=== PATIENT | female | born 1985 | race Caucasian/White ===

== ENCOUNTER 2018-03-30 13:42 | Emergency (ER) | payer OTHER ==
--- NOTE | 2018-03-30 15:07 | ER Document Report ---
ED GI/ - General Chief Complaint: Back Pain Stated Complaint: BACK PAIN Time Seen by Provider: 03/30/18 14:44 Mode of Arrival: Ambulatory Information source: Patient Notes: 32-year-old female presents to ED for complaint of left back and flank pain. She is 25 weeks . She states the pain goes around to her pelvic area and it also goes down her left leg. She states is 4 para 3. She states she has never had pain like this with any of her other pregnancies. She states is been going on for 3 or 4 days. She states she just moved to the area and she has a OB appointment on . TRAVEL OUTSIDE OF THE [place] IN LAST 30 DAYS: No - HPI Patient complains to provider of: Abdominal pain, Flank pain, Other - Low back pain with pain radiating to the left pelvis and leg Onset: Other - 84 days Timing/Duration: Gradual Quality of pain: Sharp Severity at maximum: Moderate Severity in ED: Moderate Pain Level: 4 Context: Location: Left flank, Low back Vaginal bleeding (Compared to normal period): None Menstrual period history: : 4 Para: 3 OB ultrasound done: Yes Associated symptoms: Other - 25-week with left flank and low back pain radiating down the leg Exacerbated by: Movement Relieved by: Denies Similar symptoms previously: No Recently seen / treated by doctor: No - Related Data Allergies/Adverse Reactions: No Known Allergies Allergy (Unverified 03/30/18 13:43) Past Medical History - General Information source: Patient - Social History Smoking Status: Never Smoker Cigarette use (# per day): No Chew tobacco use (# tins/day): No Smoking Education Provided: No Frequency of alcohol use: None Drug Abuse: None Lives with: Family Family History: Reviewed & Not Pertinent Patient has suicidal ideation: No Patient has homicidal ideation: No - Past Medical History Cardiac Medical History: Reports: None Pulmonary Medical History: Reports: None EENT Medical History: Reports: None Neurological Medical History: Reports: None Endocrine Medical History: Reports: None Renal/ Medical History: Reports: None Malignancy Medical History: Reports: None GI Medical History: Reports: None Musculoskeletal Medical History: Reports None Skin Medical History: Reports None Psychiatric Medical History: Reports: None Traumatic Medical History: Reports: None Infectious Medical History: Reports: None Past Surgical History: Reports: Hx Gynecologic Surgery - leep/cone bx Review of Systems - Review of Systems Constitutional: No symptoms reported EENT: No symptoms reported Cardiovascular: No symptoms reported Respiratory: No symptoms reported Gastrointestinal: No symptoms reported Genitourinary: Flank pain - left Female Genitourinary: Musculoskeletal: Back pain Skin: No symptoms reported Hematologic/Lymphatic: No symptoms reported Neurological/Psychological: No symptoms reported -: Yes All other systems reviewed and negative Physical Exam - Vital signs Vitals: Temp Pulse Resp BP Pulse Ox 98.7 F 76 16 114/62 100 03/30/18 13:59 03/30/18 13:59 03/30/18 13:59 03/30/18 13:59 03/30/18 13:59 Interpretation: Normal - General General appearance: Appears well, Alert - HEENT Head: Normocephalic, Atraumatic Eyes: Normal Pupils: PERRL - Respiratory Respiratory status: No respiratory distress Chest status: Nontender Breath sounds: Normal Chest palpation: Normal - Cardiovascular Rhythm: Regular Heart sounds: Normal auscultation Murmur: No - Abdominal Inspection: Gravid female - 25 weeks according to patient Distension: No distension Bowel sounds: Normal Tenderness: Tender - flank left Organomegaly: No organomegaly Notes: Willing patient to ultrasound for a renal ultrasound she stated she started having pain down the center of her abdomen. A OB greater than 14-week ultrasound was added and ultrasound will do it while she has an ultrasound. She states she does not feel like she has any vaginal bleeding - Back Back: Normal, Nontender - Extremities General upper extremity: Normal inspection, Nontender, Normal color, Normal ROM , Normal temperature General lower extremity: Normal inspection, Nontender, Normal color, Normal ROM , Normal temperature, Normal weight bearing. No: Mayela's sign - Neurological Neuro grossly intact: Yes Cognition: Normal Orientation: AAOx4 [place] Coma Scale Eye Opening: Spontaneous [place] Coma Scale Verbal: Oriented [place] Coma Scale Motor: Obeys Commands Bryanna Coma Scale Total: 15 Speech: Normal Motor strength normal: LUE, RUE, LLE, RLE Sensory: Normal - Psychological Associated symptoms: Normal affect, Normal mood - Skin Skin Temperature: Warm Skin Moisture: Dry Skin Color: Normal Course - Re-evaluation Re-evalutation: 03/30/18 22:[address] Lester who came and examined the patient. She recommended given 5 g of pain IM and follow-up with her CLIENT MANAGER. Patient was treated with 5 mg of morphine IM and instructed to follow-up with [facility]. Ultrasound of kidney and CLIENT MANAGER were both negative as well as her urine. Patient was given a copy of these results to follow-up. Patient was encouraged to increase her ambulation and back exercises to reduce the pain in her flank and low back. - Vital Signs Vital signs: Temp Pulse Resp BP Pulse Ox 97.2 F 72 18 109/58 L 99 03/30/18 17:49 03/30/18 17:49 03/30/18 17:49 03/30/18 17:49 03/30/18 17:49 - Diagnostic Test Radiology reviewed: Image reviewed, Reports reviewed Discharge - Discharge Clinical Impression: Flank pain, Low back pain during in second trimester Sciatica Qualifiers: Laterality: left Qualified Code(s): M54.32 - Sciatica, left side Condition: Stable Disposition: HOME, SELF-CARE Additional Instructions: Flank Pain We weren't able to prove an exact cause for your flank pain. Pain in the flank can be caused by a muscle strain or spasm. Sometimes a kidney stone causes pain, but can't be found on our tests. Infection in the kidney should be evident on a urine test. Early shingles can occasionally cause flank pain, without the rash that proves the diagnosis. On rare occasions, disease of the pancreas, aorta, spleen, or colon can create pain in the flank. At this time, there's no evidence of a dangerous condition, and it seems safe for you to be at home. If the pain goes away and does not come back, no further testing will be needed. If pain persists, or becomes more severe, we may need to repeat some tests or order additional new testing. Blood in the urine, urgency to urinate frequently, and pain that radiates to the groin can indicate a kidney stone. Fever may mean that the pain is due to infection, either of the kidney or the colon (diverticulitis). If your pain is early shingles, you should develop an eruption of blisters in the painful area within a few days. Call the doctor or return if you have pain that is spreading or becoming more severe, pain that does not resolve with time, fever, or any other new symptoms. LOW BACK PAIN: Three out of every four people will have an episode of disabling back pain during their lifetime. Most commonly the pain is due to straining of the muscles and ligaments in the low back. Usual treatment includes: (1) Rest on a firm surface. Avoid lying on your stomach. (2) Ice pack the painful area. After a few days, gentle heat may be used intermittently to relax the area, or ice packs can be continued. (3) Medication may be needed -- muscle relaxers and antiinflammatory medicines are commonly used. (4) As the back improves, exercises are prescribed to strengthen the back and abdominal muscles. Your doctor will advise you on the proper care for your back at each stage in your recovery. You may be better in a few days -- or healing may take several weeks. If new symptoms of a "herniated disc" (radiation of pain, numbness, or tingling down the back of the leg or weakness in the leg) occur, you should be re-examined. Further testing may be necessary. ICE PACKS: Apply ice packs frequently against the painful area. Many different schedules are recommended, such as "20 minutes on, 20 minutes off" or "one hour ice, two hours rest." If you need to work, you may need to go longer between ice treatments. You should plan to have the area ice packed AT LEAST one fourth of the time. The ice should be applied over the wrap, tape, or splint, or over a layer of cloth -- not directly against the skin. Some ice bags have a built-in cloth and can be put directly on the skin. WARM PACKS: After approximately two days, apply gentle heat (such as a heating pad or hot water bottle) for about 20 to 30 minutes about every two hours -- at least four times daily. Warmth and elevation will help you make a more rapid recovery , and will ease the pain considerably. Do not use HOT heat, and never apply heat for longer than 30 minutes. The continuous heat can invisibly damage skin and muscles -- even when no burn is seen on the surface. Damaged muscles can make you MORE sore. Acetaminophen Acetaminophen may be taken for pain relief or fever control. It's much safer than aspirin, offering a wider range of "safe" dosages. It is safe during . Some brand names are Tylenol, Panadol, Datril, Anacin 3, Tempra, and Liquiprin. Acetaminophen can be repeated every four hours. The following are maximum recommended dosages: WEIGHT Dose Drops Elixir Chewable( 80mg) (LBS.) drprs=droppers tsp=teaspoon 6 40 mg .4 ml (1/2) 6-11 80 mg .8 ml (full) 1/2 tsp 1 tab 12-16 120 mg 1 1/2 drprs 3/4 tsp 1 1/2 tabs 17-23 160 mg 2 drprs 1 tsp 2 tabs 24-30 240 mg 3 drprs 1 1/2 tsp 3 tabs 30-35 320 mg 2 tsp 4 tabs 36-41 360 mg 2 1/4 tsp 4 1 /2 tabs 42-47 400 mg 2 1/2 tsp 5 tabs 48-53 480 mg 3 tsp 6 tabs 54-59 520 mg 3 1/4 tsp 6 1 /2 tabs 60-64 560 mg 3 1/2 tsp 7 tabs 65-70 600 mg 3 3/4 tsp 7 1 /2 tabs 71-76 640 mg 4 tsp 8 tabs 77-82 720 mg 4 1/2 tsp 9 tabs 83-88 800 mg 5 tsp 10 tabs >89 pounds or adults 650 mg to 900 mg Acetaminophen can be repeated every four hours. Maximum daily dose not to exceed 4000 mg. These maximum recommended dosages are slightly higher than the dosages written on the product container, but these dosages are very safe and well below the toxic dosage for acetaminophen. Stretching Exercises for the Back The physician has recommended that you begin stretching exercises for your back. These are often used even while the back is painful. However, you should notify the physician if the activities seem to increase your pain. PELVIC TILT: Lie flat on your back with knees bent. Tighten your stomach and buttock muscles so it flattens your lower back against the floor. Hold 10 seconds. Repeat 10 times, twice daily. KNEE RAISE: Lying on the back with knees bent, raise one knee to your chest, then the other. Hold both knees against the chest 10 seconds, then lower one knee at a time. Repeat 10 times, twice daily. PARTIAL TRUNK RAISE: Lie face down, arms at your sides. Keeping your waist on the floor, use your arms raise your chest up. Support yourself on your elbows for 30 seconds. Repeat twice daily, increasing the time to two minutes as you recover. FOLLOW-UP CARE: If you have been referred to a physician for follow-up care, call the physician s office for an appointment as you were instructed or within the next two days. If you experience worsening or a significant change in your symptoms, notify the physician immediately or return to the Emergency Department at any time for re-evaluation. Referrals: [facility] [Provider Group] - Follow up as needed
[2018-03-30] MEDS ORDERED: ACETAMINOPHEN 325 MG TABLET PO ONE (16:08)
[2018-03-30] MEDS ORDERED: LIDOCAINE 5% (700 MG) TRANSDERMAL ADH..PATCH TP ONE (16:21)
[2018-03-30 16:36] LABS: APPEARANCE,URINE SLIGHTLY-CLOUDY; BILIRUBIN,URINE NEGATIVE (NEGATIVE); COLOR,URINE YELLOW; GLUCOSE, URINE NEGATIVE (NEGATIVE); KETONES,URINE NEGATIVE (NEGATIVE); LEUKOCYTE ESTERASE,URINE NEGATIVE (NEGATIVE); NITRITE,URINE NEGATIVE (NEGATIVE); PROTEIN,URINE NEGATIVE (NEGATIVE); URINE SPECIFIC GRAVITY 1.003; UROBILINOGEN,URINE NEGATIVE mg/dL (<2.0)
--- NOTE | 2018-03-30 16:59 | RADIOLOGY REPORT (SQ) ---
EXAM DESCRIPTION: U/S RETROPERITON (RENAL/AORTA) COMPLETED DATE/TIME: 03/30/2018 4:46 pm REASON FOR STUDY: left flank pain 25 weeks COMPARISON: None. TECHNIQUE: Dynamic and static grayscale images acquired of the kidneys and bladder and recorded on P ACS. Additional selected color Doppler and spectral images recorded. LIMITATIONS: None. FINDINGS: RIGHT KIDNEY: The right kidney measures 10.8 cm in length, normal size. Normal echogenici ty. No solid or suspicious masses. No hydronephrosis. No calcifications. LEFT KIDNEY: The left kidney measures 10.6 cm in length, normal size. Normal echogenicity. No solid or suspicious masses. No hydronephrosis. No calcifications. BLADDER: No masses. OTHER FINDINGS: No other significant finding. IMPRESSION: 1. NORMAL RENAL AND BLADDER ULTRASOUND. TECHNICAL DOCUMENTATION: JOB ID: [id number] [email or web address]- All Rights Reserved Reading location - IP/workstation name: [email or web address]
--- NOTE | 2018-03-30 17:06 | RADIOLOGY REPORT (SQ) ---
EXAM DESCRIPTION: U/S OB 14+ TRNABD 1GES W/O DOP COMPLETED DATE/TIME: 03/30/2018 4:54 pm REASON FOR STUDY: abdominal pain 25 weeks COMPARISON: None. TECHNIQUE: Static and Dynamic grayscale imaging performed of gravid uterus using transabdominal appr oach. Additional selected color Doppler and spectral images recorded. All stored on PACS. LIMITATIONS: None. FINDINGS: FETUSES SEEN:1 EGA: 23 weeks 5 days Calculated using BPD,FL,HC,AC documented on images. No discrepancy with clinica l dates. NAHOMY: 07/22/2018 EFW: 645 +/-95 grams PERCENTILE: 40 % LADONNA: 4.4 cm PLACENTA: Anterior PRESENTATION: Cephalic. ANATOMY: HEART RATE: 131 beats per minute. FOUR CHAMBER HEART: Visualized. THREE VESSEL CORD: Yes. CORD INSERTION: Visualized. KIDNEYS AND BLADDER: Visualized. Appear normal. STOMACH: Not visualized. SPINE: Not visualized. BRAIN AND LATERAL VENTRICLES: Lateral ventricles are not visualized. Cerebellum and cisterna magna are visualized. OTHER: No other significant finding. MATERNAL ADNEXA: Maternal ovaries not visualized. CERVICAL LENGTH: 7.4 cm. Closed. OTHER: No other significant finding. IMPRESSION: LIVING INTRAUTERINE . ESTIMATED GESTATIONAL AGE 23 weeks 5 days NO VISUALIZED ANOMALIES, see above. Trimester of : Second trimester - 13 weeks 1 day to 27 weeks 6 days. TECHNICAL DOCUMENTATION: JOB ID: [id number] [employer]- All Rights Reserved Reading location - IP/workstation name: [email or web address]
[2018-03-30] MEDS ORDERED: MORPHINE SULFATE 10 MG/ML INJ IM ONE (17:38)
[2018-03-30 17:50] VITALS: BP 109/58
== END 2018-03-30 17:51 | disposition home or self-care (01) ==
LOC: ER 13:42
DX: O99.89 Other specified diseases and conditions complicating pregnancy, childbirth and the puerperium (principal); M54.42 Lumbago with sciatica, left side; O26.892 Other specified pregnancy related conditions, second trimester; R10.9 Unspecified abdominal pain; R10.2 Pelvic and perineal pain; Z3A.25 25 weeks gestation of pregnancy
CPT/HCPCS: 99284; 96372; 81001; 76770; 76805; J2270

== ENCOUNTER 2018-05-31 16:42 | Outpatient (CLI) | payer MEDICAID, OTHER ==
--- NOTE | 2018-05-31 18:16 | Non Stress Test Report ---
Non Stress Test Datetime Report Generated by CPN: 05/31/2018 18:16 DEMOGRAPHIC EGA NST: 33.5 INDICATION Indication for Study: Ordered by Provider VITAL SIGNS Temperature - NST: 96.6 Pulse - NST: 86 RESP - NST: 18 NBPSYS NST: 109 NBPDIA NST: 58 URINE RESULTS Urine Ketones - NST: Positive MONITORING Monitor Explained: Monitor Explained; Test Explained; Patient Verbalized Understanding Time on Monitor: 05/31/2018 17:00 Time off Monitor: 05/31/2018 17:52 NST Duration: 52 NST INTERVENTIONS NST Interventions: PO Hydration; Reposition Patient Physician Notified NST: DR AMADEO REVIEWED STRIP BABY A: [id number] BABY A Movement : Present Contraction Frequency : NONE FHR Baseline : 125 Accelerations : 10X10 Decelerations : None Variability : Moderate 6-25bpm NST Review: Does Not Meet Criteria for Reactive NST NST Review and Verified By : EMA Renee NST Results: Non-Reactive NST REPORT Report Trigger: Send Report
== END 2018-05-31 18:07 | disposition home or self-care (01) ==
LOC: LC 16:42
PROVIDERS: ATTEND Obstetrics & Gynecology
PROC: 4A1HXCZ Monitoring of Products of Conception, Cardiac Rate, External Approach (ICD-10-PCS; principal; 2018-05-31)
DX: Z34.93 Encounter for supervision of normal pregnancy, unspecified, third trimester (principal)
CPT/HCPCS: 59025

== ENCOUNTER 2018-06-17 17:22 | Outpatient (CLI) | payer MEDICAID | END 2018-06-17 18:05 | disposition home or self-care (01) | LOC: LC 17:22 | PROVIDERS: ATTEND Obstetrics & Gynecology Gynecology | PROC: 4A1HXCZ Monitoring of Products of Conception, Cardiac Rate, External Approach (ICD-10-PCS; principal; 2018-06-17) | DX: O36.5930 Maternal care for other known or suspected poor fetal growth, third trimester, not applicable or unspecified (principal); O99.323 Drug use complicating pregnancy, third trimester; Z3A.36 36 weeks gestation of pregnancy | CPT/HCPCS: 59025 ==

== ENCOUNTER 2018-06-21 14:34 | Outpatient (CLI) | payer MEDICAID ==
[2018-06-21] MEDS ORDERED: DEXTROSE 5%-LACTATED RINGERS 1,000 ML IV PRN (15:27)
[2018-06-21 15:47] LABS: APPEARANCE,URINE CLEAR; BILIRUBIN,URINE NEGATIVE (NEGATIVE); COLOR,URINE YELLOW; GLUCOSE, URINE NEGATIVE (NEGATIVE); KETONES,URINE NEGATIVE (NEGATIVE); LEUKOCYTE ESTERASE,URINE NEGATIVE (NEGATIVE); NITRITE,URINE NEGATIVE (NEGATIVE); PROTEIN,URINE NEGATIVE (NEGATIVE)
[2018-06-21 16:05] LABS: URINE AMPHETAMINES SCREEN NEGATIVE; URINE BARBITURATES SCREEN NEGATIVE; URINE BENZODIAZEPINES SCREEN NEGATIVE; URINE COCAINE SCREEN NEGATIVE; URINE MARIJUANA (THC) SCREEN NEGATIVE; URINE PHENCYCLIDINE SCREEN NEGATIVE
[2018-06-21 16:11] LABS: URINE METHADONE SCREEN UNCONFIRMED POSITIVE
--- NOTE | 2018-06-21 17:08 | Non Stress Test Report ---
Non Stress Test Datetime Report Generated by CPN: 06/21/2018 17:08 DEMOGRAPHIC EGA NST: 36.5 EGA NST: 36.1 INDICATION Indication for Study: Ordered by Provider Indication for Study: Intrauterine Growth Restriction; Ordered by Provider; Other Indication for Study (NST) Other: methadone VITAL SIGNS Temperature - NST: 98.5 Pulse - NST: 92 RESP - NST: 18 NBPSYS NST: 109 NBPDIA NST: 56 MONITORING Monitor Explained: Monitor Explained; Test Explained; Patient Verbalized Understanding Monitor Explained: Monitor Explained; Test Explained; Patient Verbalized Understanding Time on Monitor: 06/21/2018 14:46 Time on Monitor: 06/17/2018 17:35 Time off Monitor: 06/21/2018 16:45 Time off Monitor: 06/17/2018 18:02 NST Duration: 119 NST Duration: 27 NST INTERVENTIONS NST Interventions: IV Fluids NST Interventions: PO Hydration; Reposition Patient Physician Notified NST: Dante Campos CNM/ Dr. North BABY A: [id number] BABY A Movement : Present Movement : Present Contraction Frequency : none Contraction Frequency : NONE FHR Baseline : 125 FHR Baseline : 130 Accelerations : 15X15 Accelerations : 15X15 Decelerations : None Decelerations : None Variability : Moderate 6-25bpm Variability : Moderate 6-25bpm NST Review: Meets Criteria for Reactive NST NST Review: Meets Criteria for Reactive NST NST Review and Verified By : EMA Renee NST Review and Verified By : RADHA GENTILE CNM NST Results: Reactive NST Results: Reactive NST REPORT Report Trigger: Send Report
== END 2018-06-21 16:53 | disposition home or self-care (01) ==
LOC: LC 14:34
PROVIDERS: ATTEND Obstetrics & Gynecology
PROC: 4A1HXCZ Monitoring of Products of Conception, Cardiac Rate, External Approach (ICD-10-PCS; principal; 2018-06-21)
DX: O36.5930 Maternal care for other known or suspected poor fetal growth, third trimester, not applicable or unspecified (principal); Z3A.36 36 weeks gestation of pregnancy
CPT/HCPCS: 59025; 80307; 81005

== ENCOUNTER 2018-07-07 06:24 | Inpatient (IN) | payer MEDICAID, OTHER ==
[2018-07-06 11:18] LABS: APPEARANCE,URINE SLIGHTLY-CLOUDY; BILIRUBIN,URINE NEGATIVE (NEGATIVE); COLOR,URINE YELLOW; GLUCOSE, URINE NEGATIVE (NEGATIVE); KETONES,URINE NEGATIVE (NEGATIVE); LEUKOCYTE ESTERASE,URINE SMALL (NEGATIVE); NITRITE,URINE NEGATIVE (NEGATIVE); PROTEIN,URINE NEGATIVE (NEGATIVE); UROBILINOGEN,URINE NEGATIVE mg/dL (<2.0)
[2018-07-06 11:33] LABS: ABSOLUTE BASOPHILS # (AUTO) 0.1 10^3/uL (0.0-0.2); ABSOLUTE EOSINOPHILS # (AUTO) 0.2 10^3/uL (0.0-0.6); ABSOLUTE LYMPHOCYTES (AUTO) 2.5 10^3/uL (0.5-4.7); ABSOLUTE MONOCYTES (AUTO) 0.5 10^3/uL (0.1-1.4); ABSOLUTE NEUT (AUTO) 11.4 10^3/uL (1.7-8.2); BASOPHILS % (AUTO) 0.4 % (0-2); HEMOGLOBIN 12.4 g/dL (12.0-15.5); LYMPHOCYTES % (AUTO) 16.9 % (13-45); MEAN CORPUSCULAR HEMOGLOBIN 30.6 pg (27.0-33.4); MEAN CORPUSCULAR HGB CONC 35.4 g/dL (32.0-36.0); MEAN CORPUSCULAR VOLUME 86 fl (80-97); MONOCYTES % (AUTO) 3.3 % (3-13); PLATELET COUNT 251 10^3/uL (150-450); RED BLOOD COUNT 4.06 10^6/uL (3.72-5.28); RED CELL DISTRIBUTION WIDTH 13.6 % (11.5-14.0); SEGMENTED NEUTROPHILS % (AUTO) 78.4 % (42-78); TOTAL CELLS COUNTED % (AUTO) 100 %; WHITE BLOOD COUNT 14.6 10^3/uL (4.0-10.5)
[2018-07-06 11:58] LABS: URINE AMPHETAMINES SCREEN NEGATIVE; URINE BARBITURATES SCREEN NEGATIVE; URINE BENZODIAZEPINES SCREEN NEGATIVE; URINE COCAINE SCREEN NEGATIVE; URINE MARIJUANA (THC) SCREEN NEGATIVE; URINE PHENCYCLIDINE SCREEN NEGATIVE
[2018-07-06 13:25] LABS: URINE METHADONE SCREEN UNCONFIRMED POSITIVE
[2018-07-07] MEDS ORDERED: CEFAZOLIN 2 GM/D5W RTU 2 GM/50 ML RTUPB IV PRN (06:35)
[2018-07-07] MEDS ORDERED: RINGERS SOLUTION,LACTATED 1,000 ML IV PRN (06:37)
[2018-07-07] MEDS ORDERED: RINGERS SOLUTION,LACTATED 1,000 ML IV ONE (06:45)
[2018-07-07] MEDS ORDERED: FENTANYL CITRATE INJ/PF 100 MCG/2 ML AMPUL ONE ×2 (07:00→10:42)
[2018-07-07] MEDS ORDERED: MIDAZOLAM 2 MG/2 ML INJ ONE (07:00)
[2018-07-07] MEDS ORDERED: OXYTOCIN 10 UNIT/ML VIAL ONE ×2 (07:01→10:42)
[2018-07-07] MEDS ORDERED: FENTANYL CITRATE INJ/PF 100 MCG/2 ML AMPUL IV PRN ×3 (08:59)
[2018-07-07] MEDS ORDERED: MEPERIDINE HCL/PF INJ 25 MG/1 ML DISP.SYRIN IV PRN (08:59)
[2018-07-07] MEDS ORDERED: DIPHENHYDRAMINE HCL 50 MG/ML VIAL IV PRN (08:59)
[2018-07-07] MEDS ORDERED: MORPHINE SULFATE 10 MG/ML INJ IV PRN (08:59)
[2018-07-07] MEDS ORDERED: PROMETHAZINE HCL INJ 25 MG/1 ML VIAL IV PRN ×3 (08:59→09:41)
[2018-07-07] MEDS ORDERED: ONDANSETRON HCL INJ/PF 4 MG/2 ML SDV IV PRN (09:29)
[2018-07-07] MEDS ORDERED: SIMETHICONE 80 MG TAB.CHEW PO PRN (09:41)
[2018-07-07] MEDS ORDERED: DIPH/PERTUSS(ACELL)/TETANUS VAC/PF 0.5 ML SYR (>=10YO) IM PRN (09:41)
[2018-07-07] MEDS ORDERED: ACETAMINOPHEN 1,000 MG/100 ML RTUPB IV PRN (09:41)
[2018-07-07] MEDS ORDERED: OXYTOCIN/NORMAL SALINE 20 UNIT/1,000 ML RTUINJ IV PRN (09:41)
[2018-07-07] MEDS ORDERED: MEASLES,MUMPS&RUBELLA VACC/PF 0.5 ML VIAL SUBCUT PRN (09:41)
[2018-07-07] MEDS ORDERED: ACETAMINOPHEN 325 MG TABLET PO PRN (09:41)
[2018-07-07] MEDS ORDERED: ACETAMINOPHEN 1,000 MG/100 ML RTUPB IV ONE (09:44)
--- NOTE | 2018-07-07 09:44 | PDOC DELIVERY SUMMARY ---
Delivery Summary - Maternal Hx : VIIII Hx # Term Pregnancies: 4 Hx Total # of Abortions (Sponateous & Elective): 3 NAHOMY: 07/14/18 Gestational Age: 39 Risk Factors: Previous Ruptured Membranes: AROM Time of Rupture: 09:14 Fluids: Clear - Delivery Presentation: Vertex Heart Rate Monitoring: Done Pre-Operatively Support Person Present: Yes Location: OR : Scheduled, Repeat Placenta: Within Normal Limits Nuchal Cord: No Delivery of Placenta Date: 07/07/18 Delivery of Placenta Time: 09:15 - Medications Type of Anesthesia:: Spinal - Assess and Care Baby 1 Female Delivery of Infant Date: 07/07/18 Delivery of Infant Time: 09:15 at 1 minute: 8 at 5 minutes: 8 Preprinted Number On Band: [id number] Infant Skin to Skin (Mins): 0 To Nursery At: 09:24 Mode of Transport: Bassinet - Delivery Personnel Nursery RN: MEHUL CARDOSO MD: SUSANA IBARRA
--- NOTE | 2018-07-07 09:53 | OPERATIVE REPORT E ---
Operative Report NAME: SILVANO KELLER : 1985 AGE: 32Y DATE OF SURGERY: 07/07/2018 ROOM: 224 PREOPERATIVE DIAGNOSIS: IUP at term with prior section. OPERATION: Repeat low-transverse with delivery of a viable female, 6 pounds 2 ounces, 18.5 inches, with Apgars of 8 and 9. SURGEON: Huy IBARRA M.D. ANESTHESIA: Spinal. ESTIMATED BLOOD LOSS: Less than 100 mL. TISSUE REMOVED: Placenta. PROCEDURE: The patient was placed in a supine position, rolled on her right side, prepped and draped in a sterile fashion. A Pfannenstiel incision was made through an existing Pfannenstiel eschar and the incision extended through the subcutaneous tissue and fascia with sharp dissection. The fascia was sharply divided. The rectus muscle was bluntly and sharply divided. The parietal peritoneum was entered with sharp dissection. The uterus was nicked in the midline and extended bilaterally with blunt dissection. The infant was then delivered through the uteroabdominal incision. The nose and mouth were suctioned with bulb syringe, the cord was clamped, and was passed from the table. The placenta was manually extracted. The uterus was closed in 2 layers, the first a running stitch of 0 Vicryl and the second a Lembert stitch imbricating the first layer. Multiple stitches were then used to control the bleeding in the mid portion of the uterus with hemostasis finally being noted. The fascia was closed with 0 Vicryl and the skin was closed with subcu absorbable marsha. The patient tolerated it well and was taken to recovery room in good condition. Her urine remained clear throughout the procedure. The was taken to the nursery in good condition. DICTATING PHYSICIAN: Huy IBARRA M.D. [id number] PHY#: [id number] ID: [id number] JOB#: [id number] ACCT: [id number] cc:Huy IBARRA M.D. >
[2018-07-07] MEDS ORDERED: MEPERIDINE HCL/PF INJ 25 MG/1 ML DISP.SYRIN ONE (10:52)
[2018-07-07] MEDS: OXYCODONE-ACETAMINOPHEN 5-325 MG TABLET PO PRN ×3 (12:47→21:19)
[2018-07-07] MEDS ORDERED: PHENYLEPHRINE HCL INJ/PF 10 MG/1 ML SDV ONE (13:45)
[2018-07-07] MEDS ORDERED: ONDANSETRON HCL INJ/PF 4 MG/2 ML SDV ONE (13:45)
[2018-07-07] MEDS ORDERED: KETOROLAC TROMETHAMINE 60 MG/2 ML SDV ONE (13:45)
[2018-07-07] MEDS ORDERED: GLYCOPYRROLATE 1 MG/5 ML SYRINGE ONE (13:45)
[2018-07-07] MEDS ORDERED: DEXAMETHASONE SOD PHOSPHATE INJ 4 MG/1 ML VIAL ONE (13:45)
[2018-07-07] MEDS ORDERED: METOCLOPRAMIDE HCL INJ/PF 10 MG/2 ML SDV ONE (13:45)
[2018-07-07] MEDS ORDERED: KETOROLAC TROMETHAMINE INJ/PF 30 MG/1 ML SDV IV SCH (14:00)
[2018-07-07] MEDS: MORPHINE SULFATE 10 MG/ML INJ IV PRN ×2 (14:55→19:59)
[2018-07-07] MEDS: KETOROLAC TROMETHAMINE INJ/PF 30 MG/1 ML SDV IV SCH (17:13)
[2018-07-07] MEDS: DOCUSATE SODIUM 100 MG CAPSULE PO SCH (17:14)
[2018-07-07] MEDS: CLONAZEPAM 1 MG TABLET PO SCH (17:14)
[2018-07-07] MEDS: QUETIAPINE FUMARATE 100 MG TABLET PO SCH (21:15)
[2018-07-08] MEDS: KETOROLAC TROMETHAMINE INJ/PF 30 MG/1 ML SDV IV SCH (02:11)
[2018-07-08] MEDS: MORPHINE SULFATE 10 MG/ML INJ IV PRN ×5 (02:14→22:21)
[2018-07-08] MEDS: OXYCODONE-ACETAMINOPHEN 5-325 MG TABLET PO PRN ×4 (05:12→21:24)
[2018-07-08 06:54] LABS: HEMATOCRIT 27.9 % (36.0-47.0); MEAN CORPUSCULAR HEMOGLOBIN 30.8 pg (27.0-33.4); MEAN CORPUSCULAR HGB CONC 35.6 g/dL (32.0-36.0); MEAN CORPUSCULAR VOLUME 86 fl (80-97); PLATELET COUNT 212 10^3/uL (150-450); RED BLOOD COUNT 3.23 10^6/uL (3.72-5.28); RED CELL DISTRIBUTION WIDTH 13.9 % (11.5-14.0); WHITE BLOOD COUNT 14.9 10^3/uL (4.0-10.5)
[2018-07-08 06:59] LABS: HEMOGLOBIN 9.9 g/dL (12.0-15.5)
[2018-07-08] MEDS: IBUPROFEN 800 MG TABLET PO SCH ×3 (09:40→21:24)
[2018-07-08] MEDS: DOCUSATE SODIUM 100 MG CAPSULE PO SCH ×3 (09:42→20:26)
[2018-07-08] MEDS: PRENATAL VITAMIN W DHA CAPSULE PO SCH ×2 (09:42→20:25)
[2018-07-08] MEDS: CLONAZEPAM 1 MG TABLET PO SCH ×3 (09:42→18:26)
[2018-07-08] MEDS ORDERED: IBUPROFEN 800 MG TABLET PO SCH (12:00)
[2018-07-08] MEDS: QUETIAPINE FUMARATE 100 MG TABLET PO SCH (21:24)
[2018-07-09] MEDS: IBUPROFEN 800 MG TABLET PO SCH ×3 (02:20→14:12)
[2018-07-09] MEDS: MORPHINE SULFATE 10 MG/ML INJ IV PRN ×2 (02:20→06:36)
[2018-07-09] MEDS: OXYCODONE-ACETAMINOPHEN 5-325 MG TABLET PO PRN (04:21)
[2018-07-09] MEDS: PRENATAL VITAMIN W DHA CAPSULE PO SCH (09:13)
[2018-07-09] MEDS: CLONAZEPAM 1 MG TABLET PO SCH ×2 (09:13→13:13)
[2018-07-09] MEDS: METHADONE HCL 10 MG TABLET PO SCH ×2 (09:15→09:16)
[2018-07-09] MEDS: DOCUSATE SODIUM 100 MG CAPSULE PO SCH (09:16)
[2018-07-09] MEDS ORDERED: METHADONE HCL 100 MG PO SCH (10:00)
--- NOTE | 2018-07-09 10:02 | PDOC PROGRESS REPORT ---
Subjective-OB Progress Note for:: 07/08/18 - POD #1, s/p Rpt . Hx of Methadone use this . Has not had the Methadond yet Physical Exam (OB) Vital Signs: Temp Pulse Resp BP Pulse Ox 98.0 F 91 18 125/82 100 07/08/18 07:57 07/08/18 07:57 07/08/18 07:57 07/08/18 07:57 07/08/18 07:57 Intake & Output 07/07/18 07/08/18 07/09/18 06:59 06:59 06:59 Output Total 600 Balance -600 Weight 102.058 kg - General General Appearance: Appears well, Anxious - PIH/Pre-Eclampsia Headache: Absent Epigastric Pain: No Visual Changes: No - Dressing Removed: No Incision: Dressing - Lochia Lochia Amount: Scant < 10 ml Lochia Color: Rubra/Red - Abdomen Description: Tender, Soft Hernia Present: No Fundal Description: Firm, Midline Fundal Height: u/u - u/2 - Respiratory Respiratory Status: No respiratory distress - Abdominal Distension: No distension Tenderness: Nontender - Genitourinary Genitourinary Note: voiding - Extremities Upper extremity: Normal inspection Lower extremities: Normal inspection - Neurological Cognition: Normal Orientation: AAOx4 - Psychological Associated symptoms: Normal affect - pt is complaining due to not getting her dose of Methadone this morning. She is on Percocet for pain and the Methadone has been on hold, Agitated Objective-Diagnostic Laboratory: 07/08/18 06:38 07/08/18 06:38 WBC 14.9 H RBC 3.23 L Hgb 9.9 L D Hct 27.9 L MCV 86 MCH 30.8 MCHC 35.6 RDW 13.9 Plt Count 212 Assessment and Plan(PN) - Assessment and Plan (1) delivery delivered Is this a current diagnosis for this admission?: Yes (2) Chronic drug abuse Is this a current diagnosis for this admission?: Yes (3) Chronic pain Qualifiers: Chronic pain type: chronic pain syndrome Qualified Code(s): G89.4 - Chronic pain syndrome Is this a current diagnosis for this admission?: Yes (4) Depression Qualifiers: Depression Type: reactive depression Qualified Code(s): F32.9 - Major depressive disorder, single episode, unspecified Is this a current diagnosis for this admission?: No - Time Spent with Patient Time with patient: Less than 15 minutes Medications reviewed and adjusted accordingly: Yes - Disposition Anticipated Discharge: Home Within: within 48 hours
--- NOTE | 2018-07-09 10:17 | PDOC DISCHARGE SUMMARY ---
Final Diagnosis Discharge Date: 07/09/18 - Final Diagnosis (1) delivery delivered Is this a current diagnosis for this admission?: Yes (2) Chronic drug abuse Is this a current diagnosis for this admission?: Yes (3) Chronic pain Is this a current diagnosis for this admission?: Yes (4) Depression Is this a current diagnosis for this admission?: Yes Discharge Data - Discharge Medication Prescriptions: Ibuprofen [Motrin 800 mg Tablet] 800 mg PO Q8HP PRN #60 tablet PRN Reason: Home Medications: Clonazepam [Klonopin 1 mg Tablet] 1 tab PO TID 05/31/18 Methadone HCl [Methadose] 100 mg PO DAILY 05/31/18 Prenat 115/Iron Fum/Folic/Dss [ 19 Tablet] 1 each PO DAILY 07/06/18 Acetaminophen [Tylenol 325 mg Tablet] 650 mg PO Q4HP PRN tablet 07/09/18 Docusate Sodium [Colace 100 mg Capsule] 100 mg PO BID capsule 07/09/18 Ibuprofen [Motrin 800 mg Tablet] 800 mg PO Q8HP PRN #60 tablet 07/09/18 Procedures: NST Intrapartum Procedure(s): : Low Cervical, Transverse - Diagnosis Test Laboratory: Temp Pulse Resp BP Pulse Ox 98.8 F 73 16 146/85 H 100 07/09/18 08:39 07/09/18 08:39 07/09/18 08:39 07/09/18 08:39 07/09/18 08:39 07/06/18 07/06/18 07/08/18 10:35 10:43 06:38 RBC 4.06 3.23 L Hgb 12.4 9.9 L D Hct 35.0 L 27.9 L Urine Opiates Screen NEGATIVE - Discharge information/Instructions Discharge Activity: Activity As Tolerated, No Lifting Over 10 Pounds, No Lifting/Push/Pulling, Pelvic Rest, No tub bath Discharge Diet: Regular Disposition: HOME, SELF-CARE Follow up with: [facility] in: 1, Weeks
[2018-07-09 15:07] VITALS: BP 135/70
== END 2018-07-09 15:20 | disposition home or self-care (01) | DRG 787 ==
LOC: 2S 06:24
PROVIDERS: ADMIT Obstetrics & Gynecology Gynecology; ATTEND Obstetrics & Gynecology Gynecology
PROC: 10D00Z1 Extraction of Products of Conception, Low, Open Approach (ICD-10-PCS; principal; 2018-07-07 09:00)
DX: O34.211 Maternal care for low transverse scar from previous cesarean delivery (principal); O99.324 Drug use complicating childbirth; O75.89 Other specified complications of labor and delivery; O99.334 Smoking (tobacco) complicating childbirth; G89.4 Chronic pain syndrome; F17.210 Nicotine dependence, cigarettes, uncomplicated; F11.90 Opioid use, unspecified, uncomplicated; F41.8 Other specified anxiety disorders; Z3A.39 39 weeks gestation of pregnancy; Z37.0 Single live birth
CPT/HCPCS: 1961; 36415; 80307; 81001; 85025; 85027; 86850; 86900; 86901; 94799; J0131; J1100; J1885; J2175; J2250; J2270; J2370; J2405; J2590; J2765; J3010; J3490; J7120